=== PATIENT | male | born 2000 | race Caucasian/White ===

== ENCOUNTER 2024-06-01 15:34 | Emergency (ER) | payer MEDICAID, OTHER ==
[~2024-06-01] VITALS: Ht 175.3 cm; Wt 85.0 kg
[2024-06-01 16:59] VITALS: BP 147/102; PULSE 101; RESP 20; TEMP 98.7; O2SAT 97
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
--- NOTE | 2024-06-01 17:26 | DVH ---
EXAM: CT CERVICAL WITHOUT CONTRAST INDICATION: r/o fracture EXAM DATE: 06/01/2024 04:41 PM COMPARISON: None TECHNIQUE: Multiple axial CT images of the cervical spine were obtained using bone algorithm. Axial a nd coronal reformatting was done. Bone and soft tissue windows were reviewed. Radiation Dose Information: CT Dose: CTDI volume is 20.35 mGy. Dose-length product is 1880.91 mGy*cm FINDINGS: The cervical alignment is intact. No acute cervical spine fracture is identified. The vertebral body heights are intact. No suspicious osseous lesions are identified. No significant degenerative changes are identified. There is no prevertebral soft tissue swelling. IMPRESSION: 1. No evidence of acute cervical spine fracture or traumatic malalignment. All CT scans at this medical facility are performed using dose modulation techniques as appropriate t o a performed exam including the following: Automated exposure control was utilized; adjustment of th e MA and/or KV according to patient size; and use of iterative reconstruction technique.
[2024-06-01] MEDS: ACETAMINOPHEN 325 MG TAB PO ONE (17:32)
[2024-06-01] MEDS ORDERED: METH-1181 PO (17:42)
[2024-06-01] MEDS ORDERED: IBUP-1456 PO (17:42)
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
== END 2024-06-01 17:51 | disposition home or self-care (01) ==
LOC: ER 15:34 → EDBD 15:34 → ER 17:51
DX: M54.2 Cervicalgia (principal); M54.50 Low back pain, unspecified; Z79.1 Long term (current) use of non-steroidal anti-inflammatories (NSAID); Z79.899 Other long term (current) drug therapy; V43.52XA Car driver injured in collision with other type car in traffic accident, initial encounter; Y93.89 Activity, other specified; Y92.410 Unspecified street and highway as the place of occurrence of the external cause; Y99.8 Other external cause status
CPT/HCPCS: 70450; 72100; 72125